=== PATIENT | female | born 1955 | race Caucasian/White ===

== ENCOUNTER 2022-07-29 21:32 | Emergency (ER) | payer SELFPAY ==
[~2022-07-29] VITALS: Ht 157.5 cm; Wt 49.9 kg
[2022-07-29] MEDS ORDERED: VISTARIL25 MG PO (22:04)
== END 2022-07-29 22:13 | disposition home or self-care (01) ==
LOC: ED 21:32
DX: S90.822A Blister (nonthermal), left foot, initial encounter (principal); S90.821A Blister (nonthermal), right foot, initial encounter; X58.XXXA Exposure to other specified factors, initial encounter
CPT/HCPCS: 96372; 99283; J1885; Q0177